=== PATIENT | male | born 1985 | race Caucasian/White ===

== ENCOUNTER 2023-08-27 14:53 | Outpatient (REF) | payer BC, SELFPAY | END 2023-08-27 14:54 | disposition home or self-care (01) | LOC: LBN 14:53 | PROVIDERS: PCP Urology; Visit Provider Urology | DX: N99.116 Postprocedural urethral stricture, male, overlapping sites (principal) | CPT/HCPCS: 87086 ==

== ENCOUNTER 2024-06-30 17:53 | Outpatient (REF) | payer BC, SELFPAY ==
[2024-07-01 19:35] LABS: HIV-1/2 Ag & Ab Screen Negative (Negative)
[2024-07-01 20:12] LABS: Hepatitis C Ab w Rflx HCV PCR Negative (Negative)
[2024-07-02 11:04] LABS: Syphilis Serology (RPR) Negative (Negative)
[2024-07-02 12:52] LABS: Chlamydia Result Negative (Negative); GC Result Negative (Negative)
== END 2024-06-30 17:54 | disposition home or self-care (01) ==
LOC: LBN 17:53
PROVIDERS: PCP Urology; Visit Provider Nurse Practitioner Family
DX: Z11.3 Encounter for screening for infections with a predominantly sexual mode of transmission (principal)
CPT/HCPCS: 86803; 87389; 87491; 87591; 86592